=== PATIENT | female | born 1970 | race Caucasian/White ===

== ENCOUNTER → 2020-08-03 | Outpatient (CLI) | payer OTHER, BC | LOC: KOH-I 15:23 | DX: M79.672 Pain in left foot (principal); M77.32 Calcaneal spur, left foot | CPT/HCPCS: 73630 ==

== ENCOUNTER → 2020-10-10 | Outpatient (CLI) | payer OTHER, BC | LOC: EMI 08:07 | DX: M77.32 Calcaneal spur, left foot (principal); M72.2 Plantar fascial fibromatosis | CPT/HCPCS: 73718 ==

== ENCOUNTER → 2020-10-27 | Outpatient (CLI) | payer OTHER, BC | LOC: KOH-I 14:09 | DX: Z01.818 Encounter for other preprocedural examination (principal) | CPT/HCPCS: 71046 ==

== ENCOUNTER → 2020-10-30 | Outpatient (CLI) | payer OTHER, BC | LOC: KOH-I 12:48 | DX: Z01.818 Encounter for other preprocedural examination (principal); M72.2 Plantar fascial fibromatosis | CPT/HCPCS: 93926 ==

== ENCOUNTER → 2021-02-12 | Outpatient (CLI) | payer OTHER ==
[~2021-02-12] MED LIST: ARMOUR THYROID180 MG PO; BYSTOLIC10 MG PO; CRESTOR10 MG PO; FARXIGA10 MG PO; HYDROCHLOROTHIA25 MG PO; LOSARTAN POTAS100 MG PO; TRULICITY1.5 MG/0.5 SQ; VITAMIN D PO
[2021-02-12 08:35] LABS: HEMOGLOBIN 15.1 gm/dl (12.3-15.3); RED BLOOD COUNT 5.28 M/UL (4.00-5.10); WHITE BLOOD COUNT 5.6 K/UL (4.5-11.0)
[2021-02-12 08:53] LABS: BUN/CREATININE RATIO 21 (0-10)
== END ==
LOC: OPSV2 08:00
PROVIDERS: Podiatrist Foot & Ankle Surgery
DX: Z01.812 Encounter for preprocedural laboratory examination (principal)
CPT/HCPCS: 36415; 80048; 85027

== ENCOUNTER → 2021-02-16 | Day surgery (SDC) | payer OTHER ==
[~2021-02-16] VITALS: Ht 175.3 cm; Wt 106.6 kg
== END | disposition home or self-care (01) ==
LOC: OR 06:50
DX: M77.32 Calcaneal spur, left foot (principal); M72.2 Plantar fascial fibromatosis; M67.874 Other specified disorders of tendon, left ankle and foot; M25.872 Other specified joint disorders, left ankle and foot; E11.9 Type 2 diabetes mellitus without complications; I10 Essential (primary) hypertension; K21.9 Gastro-esophageal reflux disease without esophagitis; E78.5 Hyperlipidemia, unspecified; E03.9 Hypothyroidism, unspecified; E53.8 Deficiency of other specified B group vitamins; E55.9 Vitamin D deficiency, unspecified; Z88.0 Allergy status to penicillin; Z88.6 Allergy status to analgesic agent; Z88.2 Allergy status to sulfonamides; Z88.8 Allergy status to other drugs, medicaments and biological substances; Z20.822 Contact with and (suspected) exposure to COVID-19
CPT/HCPCS: 73620; 73650; 76000; 82962; C1713; J0171; J1100; J1170; J1885; J2001; J2250; J2405; J2704; J2710; J2795; J3010; J3370; J7030; J7120